=== PATIENT | male | born 1985 | race Caucasian/White ===

== ENCOUNTER 2016-10-10 12:42 | Emergency (ER) | payer BC ==
[2016-10-10] MEDS ORDERED: SODIUM CHLORIDE 0.9% 500 ML IV STA (13:19)
[2016-10-10] MEDS ORDERED: ORPHENADRINE 30 MG/ML 2 ML VIAL IVP STA (13:19)
[2016-10-10] MEDS ORDERED: KETOROLAC 30 MG/ML 1 ML VIAL IVP STA (13:19)
--- NOTE | 2016-10-10 13:47 | ED ---
General Adult HPI - General Chief complaint: Recheck/Abnormal Lab/Rx Stated complaint: back pain/white blood cell high-sent by [facility] Time Seen by Provider: 10/10/16 13:09 Source: patient, RN notes reviewed Mode of arrival: ambulatory Limitations: no limitations - History of Present Illness Initial comments: 30-year-old male presents to the emergency department with a chief complaint of back pain. Patient has chronic back pain is an MRI for his back he's been diagnosed with degenerative disc disease. Patient states her last 2 days his back as well and been causing him increased pain. Patient denies any loss of bowel or bladder function or saddle anesthesia. Patient states is much like his typical back pain flareup. Patient states that he was concerned due to the fact he was continuing to have the pain and he did not seem to make it better homicidal. He should be evaluated [facility] today. He'll he was found that his repeat blood draw did continue to show an elevated white blood cell count so they wanted him here to be further evaluated. Patient denies any history of fevers denies cough, nose. They state that he recently was placed on antibiotics to see if that would help lower his white blood cell count. He states he has no significant cancer history. He states that he has no complaints regarding that. He denies any nausea vomiting any changes in medications. Patient denies any recent fever, chills, shortness of breath, chest pain, abdominal pain, nausea vomiting, numbness or tingling, dysuria or hematuria, constipation or diarrhea, headaches or visual changes, or any other current symptoms. - Related Data Home Medications Medication Instructions Recorded Confirmed Escitalopram Oxalate [Lexapro] 10 mg PO DAILY 10/10/16 10/10/16 Famotidine [Pepcid] 20 mg PO DAILY PRN 10/10/16 10/10/16 Fluticasone Nasal Tama [Flonase 1 spray EA NOSTRIL DAILY PRN 10/10/16 10/10/16 Nasal Tama] Previous Rx's Medication Instructions Recorded predniSONE 50 mg PO DAILY #5 tab 10/10/16 Allergies Allergy/AdvReac Type Severity Reaction Status Date / Time No Known Allergies Allergy Verified 10/10/16 13:14 Review of Systems ROS Statement: Those systems with pertinent positive or pertinent negative responses have been documented in the HPI. ROS Other: All systems not noted in ROS Statement are negative. Past Medical History Past Medical History: Asthma, GERD/Reflux Additional Past Medical History / Comment(s): allergies History of Any Multi-Drug Resistant Organisms: None Reported Past Surgical History: Appendectomy Past Psychological History: Depression Smoking Status: Current every day smoker Past Alcohol Use History: Occasional Past Drug Use History: None Reported General Exam Limitations: no limitations General appearance: alert, in no apparent distress ENT exam: Present: normal exam, mucous membranes moist Neck exam: Present: normal inspection. Absent: tenderness, meningismus, lymphadenopathy Respiratory exam: Present: normal lung sounds bilaterally. Absent: respiratory distress, wheezes, rales, rhonchi, stridor Cardiovascular Exam: Present: regular rate, normal rhythm, normal heart sounds. Absent: systolic murmur, diastolic murmur, rubs, gallop, clicks GI/Abdominal exam: Present: soft, normal bowel sounds. Absent: distended, tenderness, guarding, rebound, rigid Extremities exam: Present: normal inspection, full ROM, normal capillary refill. Absent: tenderness, pedal edema, joint swelling, calf tenderness Back exam: Present: normal inspection, tenderness (Over the left paraspinal region), paraspinal tenderness (Left-sided). Absent: full ROM (In all planes due to pain), CVA tenderness (R), CVA tenderness (L), muscle spasm, vertebral tenderness, rash noted Neurological exam: Present: alert, oriented X3, CN II-XII intact. Absent: motor sensory deficit Psychiatric exam: Present: normal affect, normal mood Skin exam: Present: warm, dry, intact, normal color. Absent: rash Course Vital Signs 10/10/16 10/10/16 12:57 13:52 Temperature 98.1 F 99.7 F H Pulse Rate 89 70 Respiratory 20 18 Rate Blood Pressure 125/89 O2 Sat by Pulse 98 96 Oximetry Medical Decision Making - Medical Decision Making 30-year-old male presents emergency Department chief complaint of his chronic low back pain flaring up as well as elevated white blood cell count. At this time patient's blood work is reviewed. Patient's white count does appear to be 4 points lower than the 150s get at the left [facility]. We discussed that most likely discharging down her medications and follow-up to Dr. Cabezas fishing worker in [facility] for continued care of this. We did discuss that he could be related to the chronic sinus issues that he is currently following up with ENT specialist for. We discussed the patient's lumbar strain in how it is consistent with his typical back pain. His pain is improved with the pain medication here. We discussed that we will discharge from home and to follow- up with his doctor. Patient stated he understood and all his questions have been answered - Lab Data Result diagrams: 10/10/16 14:00 10/10/16 14:00 Lab Results 10/10/16 10/10/16 10/10/16 Range/Units 14:00 14:00 14:00 WBC 14.7 H (3.8-10.6) k/uL RBC 4.77 (4.30-5.90) m/uL Hgb 15.3 (13.0-17.5) gm/dL Hct 45.4 (39.0-53.0) % MCV 95.0 (80.0-100.0) fL MCH 32.1 (25.0-35.0) pg MCHC 33.7 (31.0-37.0) g/dL RDW 12.5 (11.5-15.5) % Plt Count 259 (150-450) k/uL Neutrophils % 80 % Lymphocytes % 12 % Monocytes % 5 % Eosinophils % 1 % Basophils % 0 % Neutrophils # 11.7 H (1.3-7.7) k/uL Lymphocytes # 1.8 (1.0-4.8) k/uL Monocytes # 0.8 (0-1.0) k/uL Eosinophils # 0.1 (0-0.7) k/uL Basophils # 0.1 (0-0.2) k/uL ESR 4 (0-15) mm/hr Sodium 145 (137-145) mmol/L Potassium 4.5 (3.5-5.1) mmol/L Chloride 106 (98-107) mmol/L Carbon Dioxide 27 (22-30) mmol/L Anion Gap 12 mmol/L BUN 18 (9-20) mg/dL Creatinine 1.10 (0.66-1.25) mg/dL Est GFR (MDRD) Af Amer >60 (>60 ml/min/1.73 sqM) Est GFR (MDRD) Non-Af >60 (>60 ml/min/1.73 sqM) Glucose 89 (74-99) mg/dL Plasma Lactic Acid Oneal 1.1 (0.7-2.0) mmol/L Calcium 9.7 (8.4-10.2) mg/dL Total Bilirubin 0.4 (0.2-1.3) mg/dL AST 35 (17-59) U/L ALT 43 (21-72) U/L Alkaline Phosphatase 65 (38-126) U/L C-Reactive Protein 10.7 H (<10.0) mg/L Total Protein 7.4 (6.3-8.2) g/dL Albumin 4.4 (3.5-5.0) g/dL Urine Color Urine Appearance (Clear) Urine pH (5.0-8.0) Ur Specific Peever (1.001-1.035) Urine Protein (Negative) Urine Glucose (UA) (Negative) Urine Ketones (Negative) Urine Blood (Negative) Urine Nitrate (Negative) Urine Bilirubin (Negative) Urine Urobilinogen (<2.0) mg/dL Ur Leukocyte Esterase (Negative) Influenza Type A RNA (Not Detectd) Influenza Type B (PCR) (Not Detectd) 10/10/16 10/10/16 Range/Units 14:50 16:00 WBC (3.8-10.6) k/uL RBC (4.30-5.90) m/uL Hgb (13.0-17.5) gm/dL Hct (39.0-53.0) % MCV (80.0-100.0) fL MCH (25.0-35.0) pg MCHC (31.0-37.0) g/dL RDW (11.5-15.5) % Plt Count (150-450) k/uL Neutrophils % % Lymphocytes % % Monocytes % % Eosinophils % % Basophils % % Neutrophils # (1.3-7.7) k/uL Lymphocytes # (1.0-4.8) k/uL Monocytes # (0-1.0) k/uL Eosinophils # (0-0.7) k/uL Basophils # (0-0.2) k/uL ESR (0-15) mm/hr Sodium (137-145) mmol/L Potassium (3.5-5.1) mmol/L Chloride (98-107) mmol/L Carbon Dioxide (22-30) mmol/L Anion Gap mmol/L BUN (9-20) mg/dL Creatinine (0.66-1.25) mg/dL Est GFR (MDRD) Af Amer (>60 ml/min/1.73 sqM) Est GFR (MDRD) Non-Af (>60 ml/min/1.73 sqM) Glucose (74-99) mg/dL Plasma Lactic Acid Oneal (0.7-2.0) mmol/L Calcium (8.4-10.2) mg/dL Total Bilirubin (0.2-1.3) mg/dL AST (17-59) U/L ALT (21-72) U/L Alkaline Phosphatase (38-126) U/L C-Reactive Protein (<10.0) mg/L Total Protein (6.3-8.2) g/dL Albumin (3.5-5.0) g/dL Urine Color Yellow Urine Appearance Clear (Clear) Urine pH 6.0 (5.0-8.0) Ur Specific Peever 1.014 (1.001-1.035) Urine Protein Negative (Negative) Urine Glucose (UA) Negative (Negative) Urine Ketones Negative (Negative) Urine Blood Negative (Negative) Urine Nitrate Negative (Negative) Urine Bilirubin Negative (Negative) Urine Urobilinogen <2.0 (<2.0) mg/dL Ur Leukocyte Esterase Negative (Negative) Influenza Type A RNA Not Detected (Not Detectd) Influenza Type B (PCR) Not Detected (Not Detectd) - Radiology Data Radiology results: report reviewed, image reviewed Disposition Clinical Impression: Leukocytosis, Chronic back pain, Lumbar disc disease Disposition: HOME SELF-CARE Condition: Stable Instructions: Chronic Back Pain (ED), Lower Back Exercises (ED) Additional Instructions: Please use medication as discussed. Please follow up with family doctor if symptoms have not improved over the next two days. Please return to the emergency room if your symptoms increase or worsen or for any other concerns. Prescriptions: predniSONE 50 mg PO DAILY #5 tab Referrals: Zane Orr MD [Primary Care Provider] - 1-2 days Drew Roldan MD [STAFF PHYSICIAN] - 1-2 days Time of Disposition: 16:50
[2016-10-10 14:27] LABS: Basophils # (A) 0.1 k/uL (0-0.2); Basophils % (A) 0 %; CH 32.4; CHCM 34.3; Eosinophils # (A) 0.1 k/uL (0-0.7); Eosinophils % (A) 1 %; HCT 45.4 % (39.0-53.0); HGB 15.3 gm/dL (13.0-17.5); Luc # (Auto) 0.27; Luc % (Auto) 2; Lymphocytes # (A) 1.8 k/uL (1.0-4.8); Lymphocytes % (A) 12 %; MCH 32.1 pg (25.0-35.0); MCHC 33.7 g/dL (31.0-37.0); Monocytes # (A) 0.8 k/uL (0-1.0); Monocytes % (A) 5 %; Neutrophils # (A) 11.7 k/uL (1.3-7.7); Neutrophils % (A) 80 %; RBC 4.77 m/uL (4.30-5.90); RDW 12.5 % (11.5-15.5); WBC 14.7 k/uL (3.8-10.6); WBC (Perox) 14.77
--- NOTE | 2016-10-10 14:29 | XR ---
EXAMINATION TYPE: XR chest 2V DATE OF EXAM: 10/10/2016 2:23 PM COMPARISON: NONE HISTORY: Cough and difficulty breathing TECHNIQUE: Frontal and lateral views of the chest are obtained. FINDINGS: There is no focal air space opacity, pleural effusion, or pneumothorax seen. The cardiac silhouette size is within normal limits. The osseous structures are intact. IMPRESSION: No acute cardiopulmonary process.
[2016-10-10 14:41] LABS: ALT 43 U/L (21-72); AST 35 U/L (17-59); Alkaline Phosphatase 65 U/L (38-126); Anion Gap 12 mmol/L; Blood Urea Nitrogen 18 mg/dL (9-20); C Reactive Protein 10.7 mg/L (<10.0); Calcium 9.7 mg/dL (8.4-10.2); Carbon Dioxide 27 mmol/L (22-30); Chloride 106 mmol/L (98-107); Glucose 89 mg/dL (74-99); Non-African American GFR(MDRD) >60 (>60 ml/min/1.73 sqM); Potassium 4.5 mmol/L (3.5-5.1); Sodium 145 mmol/L (137-145); Total Bilirubin 0.4 mg/dL (0.2-1.3); Total Protein 7.4 g/dL (6.3-8.2)
[2016-10-10 15:20] LABS: Erythrocyte Sedimentation Rate 4 mm/hr (0-15)
[2016-10-10] MEDS ORDERED: HYDROmorphone 1 MG/ML 1 ML SYRINGE IVP STA (15:49)
[2016-10-10] MEDS ORDERED: RX INFO: IV CONTRAST WAS GIVEN 1 EACH MISC MISCELLANE PRN (15:54)
[2016-10-10 16:14] LABS: Appearance,Urine Clear (Clear); Bilirubin,Urine Negative (Negative); Glucose,Urine (UA) Negative (Negative); Ketones,Urine Negative (Negative); Leukocyte Esterase,Urine Negative (Negative); Nitrite,Urine Negative (Negative); Protein,Urine Negative (Negative); Specific Gravity,Urine 1.014 (1.001-1.035); UA Billing (MACRO vs. MICRO) CHEM; Urobilinogen,Urine <2.0 mg/dL (<2.0)
--- NOTE | 2016-10-10 16:25 | CT ---
EXAMINATION TYPE: CT lumbar spine w con DATE OF EXAM: 10/10/2016 4:16 PM COMPARISON: NONE HISTORY: Low back pain and elevated WBCs. CT DLP: 1443.40 mGycm CONTRAST: Unenhanced CT of the lumbar spine is performed with IV Contrast, patient injected with 100 mL of Omni paque 300. Unenhanced CT of the lumbar spine was performed. Bone and soft tissue window settings are submitted as well as coronal and sagittal reconstructions. There appears to be a transitional lumbar vertebral segment with partial lumbarization of S1 suspecte d with rudimentary S1-S2 disc. L1-L2: Normal disc space height. No disc herniation protrusion or central stenosis. No facet joint arthropathy. No evidence for foraminal encroachment. L2-L3: Normal disc space height. No disc herniation protrusion or central stenosis. No facet joint arthropathy. No evidence for foraminal encroachment. L3-L4: Normal disc space height. No disc herniation protrusion or central stenosis. No facet joint arthropathy. No evidence for foraminal encroachment. L4-L5: Normal disc space height. No disc herniation protrusion or central stenosis. No facet joint arthropathy. No evidence for foraminal encroachment. L5-S1: Mild disc space narrowing. Nonenhancing epidural soft tissue measuring approximately 2.6 x 1.2 cm may reflect a large disc herniation with resultant right lateral recess stenosis. Right foraminal encroachment is present. No paraspinal masses are identified. Lumbar segments are free if fracture. No definite evidence for a paraspinal abscess or evidence for discitis at this time. If symptoms persist consider MRI. IMPRESSION: 1. No definite evidence for a paraspinal abscess or evidence for discitis at this time. If symptoms persist consider MRI. 2. Nonenhancing epidural soft tissue at L5-S1 measuring approximately 2.6 x 1.2 cm may reflect a larg e disc herniation with resultant right lateral recess stenosis. Right foraminal encroachment is prese nt.
[2016-10-10 17:03] VITALS: BP 129/57; PULSE 69; RESP 16; TEMP 97.3
== END 2016-10-10 17:10 | disposition home or self-care (01) ==
LOC: EC 12:42
DX: D72.829 Elevated white blood cell count, unspecified (principal); G89.29 Other chronic pain; M54.5 Low back pain; F32.9 Major depressive disorder, single episode, unspecified; F17.200 Nicotine dependence, unspecified, uncomplicated; Z79.899 Other long term (current) drug therapy
CPT/HCPCS: 36415; 80053; 85652; 83605; 85025; 86140; 81003; 87040; 87502; 71020; 72132; 99284; 96374; 96375 ×2; J2360; J1885; J1170; Q9967

== ENCOUNTER → 2019-12-25 | Outpatient (CLI) | payer OTHER ==
--- NOTE | 2019-12-25 12:52 | MR ---
EXAMINATION TYPE: MR lumbar spine wo con DATE OF EXAM: 12/25/2019 COMPARISON: CT lumbar spine October 10, 2016. MRI lumbar spine April 08, 2015 HISTORY: Low back pain for 10 years radiating into both legs per patient. TECHNIQUE: Multiplanar, multisequence imaging of the lumbar spine is performed without IV contrast. FINDINGS: Sagittal images of the lumbar spine show vertebral body heights to remain satisfactory. Tra nsitional-type sacralized L6 segment. There is persistent grade 1 retrolisthesis of L5 on L6. There i s persistent disc desiccation and mild disc space narrowing at this level. The intervertebral discs d emonstrate normal heights and hydration above this level. The conus medullary areas remains normal i n position and signal ending L1-L2 disc space level. The bone marrow signal intensity remains within normal limits. Axial images redemonstrate focal right paracentral disc protrusion effacing the anterior thecal sac a t L5 L6 level axial image 9 with additional foraminal component causing asymmetric moderate right-joni ed inferior neural foraminal narrowing seen best sagittal image 12, no significant change or progress ion from prior MRI. Other lumbar levels are within normal limits. Paraspinal muscle bulk is preserved . IMPRESSION: Stable degenerative change L5-L6 level from 2015 MRI. No interval progression or suspicio us new findings.
== END | disposition home or self-care (01) ==
LOC: RADMRIMAIN 11:57
DX: M54.5 Low back pain (principal); M47.896 Other spondylosis, lumbar region; Z88.4 Allergy status to anesthetic agent; Z88.8 Allergy status to other drugs, medicaments and biological substances
CPT/HCPCS: 72148

== ENCOUNTER → 2023-11-06 | Outpatient (CLI) | payer OTHER ==
--- NOTE | 2023-11-06 15:07 | CT ---
EXAMINATION TYPE: CT lumbar spine wo con DATE OF EXAM: 11/06/2023 2:03 PM COMPARISON: 10/10/2016 HISTORY: lower back pain CT DLP: 1862.8 mGycm Automated exposure control for dose reduction was used. Unenhanced CT of the lumbar spine was performed. Bone and soft tissue window settings are submitted as well as coronal and sagittal reconstructions. Findings: There are postsurgical changes of intradisc and posterior metallic fusion of L5-S1. Note that there i s a rudimentary S1-S2 disc. The lumbar vertebral segments are normal in height and alignment there is no subluxation or fracture. The disc spaces from L1 through L5 are well-maintained in height and no significant degenerative dis c disease. The sacrum and SI joints are normal. There is no large disc herniation or spinal stenosis. There are fractures of the lamina of L5 with slight displacement. IMPRESSION: IMPRESSION: 1. Postsurgical changes of interdisc and posterior metallic fusion of L5-S1 disc space with a rudimen tary S1/S2 disc. 2. Fractures of the L5 lamina bilaterally with slight displacement. Postsurgical changes of L5-S1
== END | disposition home or self-care (01) ==
LOC: RADCTMAIN 13:39
PROVIDERS: ATTEND Family Medicine
DX: S32.058A Other fracture of fifth lumbar vertebra, initial encounter for closed fracture (principal); M51.26 Other intervertebral disc displacement, lumbar region; X58.XXXA Exposure to other specified factors, initial encounter
CPT/HCPCS: 72131

== ENCOUNTER 2024-09-16 10:56 | Inpatient (IN) | payer OTHER, BC ==
--- NOTE | 2024-09-16 11:13 | ED ---
General Adult HPI - General Chief complaint: Shortness of Breath Stated complaint: ESPERANZA Time Seen by Provider: 09/16/24 11:08 Source: patient, RN notes reviewed Mode of arrival: ambulatory Limitations: no limitations - History of Present Illness Initial comments: This is a 38-year-old male with history of smoking presenting with significant other for worsening CXR and shortness of breath this morning following pneumonia diagnosis in this ER on 09/13/2024. Patient states he had gone to [facility] this morning where he was advised pneumonia and his right lung was growing larger despite use of prescribed doxycycline. Patient was advised to go to the ER for further treatment. Patient endorses ongoing productive cough, right chest pleuritic pain that worsens with cough and fatigue. Patient was recommended admission to treat pneumonia and prior visit but declined. Patient also had elevated D-dimer on last visit with CTA showing no indication of PE. Onset/Timin -: days(s) Location: chest Radiation: non-radiation Consistency: constant Associated Symptoms: cough, malaise, shortness of breath - Related Data Home Medications Medication Instructions Recorded Confirmed Albuterol Sulfate [Albuterol 1 puff PO RT-Q6H PRN 09/16/24 09/16/24 Sulfate Hfa] Ipratropium/Albuter 20-100Mcg 1 puff INHALATION RT-QID PRN 09/16/24 09/16/24 [Combivent Respimat 20-100Mcg Inhaler] Previous Rx's Medication Instructions Recorded HYDROcodone/APAP 5-325MG [[place] 1 tab PO Q6HR PRN 3 Days #12 tab 09/13/24 5-325] Ibuprofen [Motrin] 600 mg PO Q8HR PRN #30 tab 09/13/24 Allergies Allergy/AdvReac Type Severity Reaction Status Date / Time doxycycline AdvReac Nausea & Verified 09/16/24 13:44 Vomiting Review of Systems ROS Statement: Those systems with pertinent positive or pertinent negative responses have been documented in the HPI. ROS Other: All systems not noted in ROS Statement are negative. Past Medical History Past Medical History: Asthma, GERD/Reflux Additional Past Medical History / Comment(s): allergies History of Any Multi-Drug Resistant Organisms: None Reported Past Surgical History: Appendectomy Additional Past Surgical History / Comment(s): back/spinal fusion in 2020. Past Psychological History: Depression Smoking Status: Current every day smoker Past Alcohol Use History: Occasional Past Drug Use History: Marijuana General Exam Limitations: no limitations General appearance: alert, in no apparent distress, lethargic Head exam: Present: atraumatic, normocephalic, normal inspection Eye exam: Present: normal appearance, PERRL, EOMI. Absent: scleral icterus, conjunctival injection, periorbital swelling ENT exam: Present: normal exam, mucous membranes moist Neck exam: Present: normal inspection. Absent: tenderness, meningismus, lymphadenopathy Respiratory exam: Present: accessory muscle use, decreased breath sounds (Diminished breath sounds in right lung bases). Absent: respiratory distress, wheezes, rales, rhonchi, stridor Cardiovascular Exam: Present: regular rate, normal rhythm, normal heart sounds. Absent: systolic murmur, diastolic murmur, rubs, gallop, clicks GI/Abdominal exam: Present: soft, normal bowel sounds. Absent: distended, tenderness, guarding, rebound, rigid Extremities exam: Present: normal inspection, full ROM, normal capillary refill. Absent: tenderness, pedal edema, joint swelling, calf tenderness Back exam: Present: normal inspection Neurological exam: Present: alert, oriented X3, CN II-XII intact Psychiatric exam: Present: normal affect, normal mood Skin exam: Present: warm, dry, intact, normal color. Absent: rash Course Vital Signs 09/16/24 10:57 Temperature 98.4 F Pulse Rate 112 H Respiratory 20 Rate Blood Pressure 163/83 O2 Sat by Pulse 97 Oximetry Medical Decision Making - Medical Decision Making Was pt. sent in by a medical professional or institution (, PA, ADULT BASIC STUDIES TEACHER, urgent care, hospital, or retirement...) When possible be specific @ -[facility] following discovery of worsening CXR findings Did you speak to anyone other than the patient for history (EMS, parent, family, police, friend...)? What history was obtained from this source @ -[No] Did you review nursing and triage notes (agree or disagree)? Why? @ -[I reviewed and agree with nursing and triage notes] Were old charts reviewed (outside hosp., previous admission, EMS record, old EKG, old radiological studies, urgent care reports/EKG's, retirement records)? Report findings @ -Reviewed chart from prior ER visit on 09/13/2024. Differential Diagnosis (chest pain, altered mental status, abdominal pain women, abdominal pain men, vaginal bleeding, weakness, fever, dyspnea, syncope, headache, dizziness, GI bleed, back pain, seizure, CVA, palpatations, mental health, musculoskeletal)? @ -Differential Dyspnea: Coronary syndrome, arrhythmia, tamponade, asthma, COPD, pulmonary embolism, pneumonia, pneumothorax, pulmonary effusion, anaphylaxis, diabetic ketoacidosis, flailed chest, pulmonary contusion, diaphragmatic rupture, anemia, neur omuscular, this is not meant to be an all-inclusive list. EKG interpreted by me (3pts min.). @ -Sinus rhythm with V3 Q wave. No ST deviation or T wave inversion. Ventricular rate 95 bpm, DAVON 152 ms, QRS duration 97 ms, QTc 383 ms. X-rays interpreted by me (1pt min.). @ -[None done] CT interpreted by me (1pt min.). @ -[None done] U/S interpreted by me (1pt. min.). @ -[None done] What testing was considered but not performed or refused? (CT, X-rays, U/S, labs)? Why? @ -[None] What meds were considered but not given or refused? Why? @ -[None] Did you discuss the management of the patient with other professionals (professionals i.e. , PA, ADULT BASIC STUDIES TEACHER, lab, RT, psych nurse, social media marketing analyst, barrel finisher, t eacher, airconditioning drafting officer, correctional casework specialist)? Give summary @ -[No] Was smoking cessation discussed for >3mins.? @ -[No] Was critical care preformed (if so, how long)? @ -[No] Were there social determinants of health that impacted care today? How? (Homelessness, low income, unemployed, alcoholism, drug addiction, transportation, low edu. Level, literacy, decrease access to med. care, residential, rehab)? @ -[No] Was there de-escalation of care discussed even if they declined (Discuss DNR or withdrawal of care, Hospice)? DNR status @ -[No] What co-morbidities impacted this encounter? (DM, HTN, Smoking, COPD, CAD, Cancer, CVA, ARF, Chemo, Hep., AIDS, mental health diagnosis, sleep apnea, morbid obesity)? @ -[None] Was patient admitted / discharged? Hospital course, mention meds given and route, prescriptions, significant lab abnormalities, going to OR and other pertinent info. @ -[hospital course] Undiagnosed new problem with uncertain prognosis? @ -[No] Drug Therapy requiring intensive monitoring for toxicity (Heparin, Nitro, Insulin, Cardizem)? @ -[No] Were any procedures done? @ -[No] Diagnosis/symptom? @ -Pneumonia, leukocytosis Acute, or Chronic, or Acute on Chronic? @ -Acute Uncomplicated (without systemic symptoms) or Complicated (systemic symptoms)? @ -Complicated Side effects of treatment? @ -[No] Exacerbation, Progression, or Severe Exacerbation? @ -Progression Poses a threat to life or bodily function? How? (Chest pain, [place], [place], pneumonia, PE, COPD, DKA, ARF, appy, cholecystitis, CVA, Diverticulitis, Homicidal, Suicidal, threat to staff... and all critical care pts) @ -Pneumonia, respiratory failure - Lab Data Result diagrams: 09/16/24 11:24 09/16/24 11:24 Lab Results 09/16/24 09/16/24 09/16/24 Range/Units 11:24 11:24 11:24 WBC 21.4 H (3.8-10.6) k/uL RBC 4.14 L (4.30-5.90) m/uL Hgb 13.3 (13.0-17.5) gm/dL Hct 39.9 (39.0-53.0) % MCV 96.3 (80.0-100.0) fL MCH 32.1 (25.0-35.0) pg MCHC 33.3 (31.0-37.0) g/dL RDW 12.9 (11.5-15.5) % Plt Count 364 (150-450) k/uL MPV 7.6 Neutrophils % 85 % Lymphocytes % 7 % Monocytes % 4 % Eosinophils % 3 % Basophils % 0 % Neutrophils # 18.2 H (1.3-7.7) k/uL Lymphocytes # 1.6 (1.0-4.8) k/uL Monocytes # 0.8 (0-1.0) k/uL Eosinophils # 0.6 (0-0.7) k/uL Basophils # 0.0 (0-0.2) k/uL PT 10.3 (10.0-12.5) sec INR 0.9 (<1.2) APTT 24.6 (22.0-30.0) sec D-Dimer 5.46 H (<0.60) mg/L FEU VBG pH (7.31-7.41) VBG pCO2 (37-51) mmHg VBG HCO3 (24-28) mmol/L Sodium 138 (137-145) mmol/L Potassium 3.9 (3.5-5.1) mmol/L Chloride 103 (98-107) mmol/L Carbon Dioxide 25 (22-30) mmol/L Anion Gap 10 mmol/L BUN 21 H (9-20) mg/dL Creatinine 0.88 (0.66-1.25) mg/dL Est GFR (CKD-EPI)AfAm >90 (>60 ml/min/1.73 sqM) Est GFR (CKD-EPI)NonAf >90 (>60 ml/min/1.73 sqM) Glucose 172 H (74-99) mg/dL Plasma Lactic Acid Oneal (0.7-2.0) mmol/L Calcium 8.8 (8.4-10.2) mg/dL Magnesium 1.8 (1.6-2.3) mg/dL Total Bilirubin 0.7 (0.2-1.3) mg/dL AST 67 H (17-59) U/L ALT 101 H (4-49) U/L Alkaline Phosphatase 116 (38-126) U/L Troponin I (0.000-0.034) ng/mL C-Reactive Protein 23.5 H (<1.0) mg/dL Total Protein 6.5 (6.3-8.2) g/dL Albumin 3.5 (3.5-5.0) g/dL 09/16/24 09/16/24 09/16/24 Range/Units 11:24 11:24 11:55 WBC (3.8-10.6) k/uL RBC (4.30-5.90) m/uL Hgb (13.0-17.5) gm/dL Hct (39.0-53.0) % MCV (80.0-100.0) fL MCH (25.0-35.0) pg MCHC (31.0-37.0) g/dL RDW (11.5-15.5) % Plt Count (150-450) k/uL MPV Neutrophils % % Lymphocytes % % Monocytes % % Eosinophils % % Basophils % % Neutrophils # (1.3-7.7) k/uL Lymphocytes # (1.0-4.8) k/uL Monocytes # (0-1.0) k/uL Eosinophils # (0-0.7) k/uL Basophils # (0-0.2) k/uL PT (10.0-12.5) sec INR (<1.2) APTT (22.0-30.0) sec D-Dimer (<0.60) mg/L FEU VBG pH 7.42 H (7.31-7.41) VBG pCO2 44 (37-51) mmHg VBG HCO3 28 (24-28) mmol/L Sodium (137-145) mmol/L Potassium (3.5-5.1) mmol/L Chloride (98-107) mmol/L Carbon Dioxide (22-30) mmol/L Anion Gap mmol/L BUN (9-20) mg/dL Creatinine (0.66-1.25) mg/dL Est GFR (CKD-EPI)AfAm (>60 ml/min/1.73 sqM) Est GFR (CKD-EPI)NonAf (>60 ml/min/1.73 sqM) Glucose (74-99) mg/dL Plasma Lactic Acid Oneal 1.4 (0.7-2.0) mmol/L Calcium (8.4-10.2) mg/dL Magnesium (1.6-2.3) mg/dL Total Bilirubin (0.2-1.3) mg/dL AST (17-59) U/L ALT (4-49) U/L Alkaline Phosphatase (38-126) U/L Troponin I <0.012 (0.000-0.034) ng/mL C-Reactive Protein (<1.0) mg/dL Total Protein (6.3-8.2) g/dL Albumin (3.5-5.0) g/dL Disposition Clinical Impression: Pneumonia, Leukocytosis Disposition: ADMITTED IP TO THIS HOSP Condition: Stable Is patient prescribed a controlled substance at d/c from ED?: No Referrals: [facility] [Primary Care Provider] - 1-2 days Time of Disposition: 13:04 Decision Date: 09/16/24 Decision Time: 13:04
[2024-09-16 11:34] LABS: Basophils % (A) 0 %; Eosinophils # (A) 0.6 k/uL (0-0.7); Eosinophils % (A) 3 %; HCT 39.9 % (39.0-53.0); HGB 13.3 gm/dL (13.0-17.5); Lymphocytes # (A) 1.6 k/uL (1.0-4.8); Lymphocytes % (A) 7 %; MCH 32.1 pg (25.0-35.0); MCHC 33.3 g/dL (31.0-37.0); MCV 96.3 fL (80.0-100.0); Mean Platelet Volume 7.6; Monocytes # (A) 0.8 k/uL (0-1.0); Monocytes % (A) 4 %; Neutrophils # (A) 18.2 k/uL (1.3-7.7); Neutrophils % (A) 85 %; Platelet Count 364 k/uL (150-450); RBC 4.14 m/uL (4.30-5.90); RDW 12.9 % (11.5-15.5); WBC 21.4 k/uL (3.8-10.6)
--- NOTE | 2024-09-16 11:48 | XR ---
EXAMINATION TYPE: XR chest 2V DATE OF EXAM: 09/16/2024 11:43 AM COMPARISON: Chest radiographs from 09/13/2024, CTA chest 09/13/2024 TECHNIQUE: XR chest 2V Frontal and lateral views of the chest. CLINICAL INDICATION:Male, 38 years old with history of difficulty breathing; FINDINGS: Lungs/Pleura: No pneumothorax. Left lung is clear. Increased small right pleural effusion. Increased mid to lower right lung consolidation opacity. Pulmonary vascularity: Unremarkable. Heart/mediastinum: Cardiomediastinal silhouette is unremarkable. Musculoskeletal: No acute osseous pathology. IMPRESSION: Increased small right pleural effusion with also increased mid to lower right lung consolidative opac ity likely representing pneumonia. [facility], , 09/16/2024 11:46 AM
[2024-09-16 11:53] LABS: INR 0.9 (<1.2); Partial Thromboplastin Time 24.6 sec (22.0-30.0); Prothrombin Time 10.3 sec (10.0-12.5)
[2024-09-16 12:15] LABS: ALT 101 U/L (4-49); AST 67 U/L (17-59); African American GFR (CKD) >90 (>60 ml/min/1.73 sqM); Albumin 3.5 g/dL (3.5-5.0); Alkaline Phosphatase 116 U/L (38-126); Anion Gap 10 mmol/L; Blood Urea Nitrogen 21 mg/dL (9-20); Calcium 8.8 mg/dL (8.4-10.2); Carbon Dioxide 25 mmol/L (22-30); Chloride 103 mmol/L (98-107); Glucose 172 mg/dL (74-99); Magnesium 1.8 mg/dL (1.6-2.3); Non-African American GFR(CKD) >90 (>60 ml/min/1.73 sqM); Potassium 3.9 mmol/L (3.5-5.1); Sodium 138 mmol/L (137-145); Total Bilirubin 0.7 mg/dL (0.2-1.3); Total Protein 6.5 g/dL (6.3-8.2)
[2024-09-16 12:19] LABS: VBG PH 7.42 (7.31-7.41)
[2024-09-16] MEDS: SODIUM CHLORIDE 0.9% 1,000 ML IV STA (12:19)
[2024-09-16 12:27] LABS: C Reactive Protein 23.5 mg/dL (<1.0)
[2024-09-16] MEDS: DEXAMETHASONE SOD PHOSPHATE 10 MG/ML 1 ML VIAL IVP SCH (13:10)
[2024-09-16] MEDS: cefTRIAXone IN SWFI 1,000 MG/10 ML SYRINGE IVP STA (13:11)
[2024-09-16] MEDS ORDERED: NALOXONE 0.4 MG/ML 1 ML VIAL IV PRN (13:19)
[2024-09-16] MEDS ORDERED: HYDROcodone/APAP 5-325MG 1 EACH TAB PO PRN (13:20)
[2024-09-16] MEDS ORDERED: FAMOTIDINE 20 MG TAB PO PRN (13:20)
--- NOTE | 2024-09-16 14:01 | CT ---
EXAMINATION TYPE: CT angio chest DATE OF EXAM: 09/16/2024 1:46 PM COMPARISON: None. CLINICAL INDICATION: Male, 38 years old with history of Worsening dyspnea, elevated D-dimer, r/o pE TECHNIQUE: CT of the chest is performed on a spiral scan at 2 mm thick sections. Study is performed with intravenous contrast timed for evaluation for pulmonary embolism. This will limit additional po rtions of the evaluation. 3-D MIP images reconstructed by the technologist are reviewed on the compu ter in the coronal and sagittal planes. Contrast used:70 mL of Isovue 370 with IV Contrast, (none if empty) Oral contrast used: (none if empty) CT DLP: 740.8 mGycm, Automated exposure control for dose reduction was used. FINDINGS: No persistent filling defects are evident to suggest an acute pulmonary embolism. Contrast timing is somewhat limited due to IV access. No mediastinal or hilar adenopathy enlarged by CT criteria is evident. The ascending aorta diameter at the level of the main pulmonary artery is 3.1 cm. The main pulmonary artery diameter at the bifurcation is 3.0 cm. There is a small to moderate right pleural effusion. Loculated effusion may be in the posterior media l right lung base. Compressive atelectasis may be at the right lung base.r Limited CT sections were through the upper abdomen. Upper abdomen appears unremarkable. IMPRESSION: 1. No definite occluding pulmonary emboli. Contrast timing is somewhat limited. 2. Moderate right pleural effusion. Loculated component may be in the posterior medial right lung bas e. Adjacent compressive atelectasis is present. [facility], , 09/16/2024 1:58 PM
--- NOTE | 2024-09-16 14:18 | P.HPIM ---
History of Present Illness H&P Date: 09/16/24 Patient is a 38-year-old male with past medical history of GERD, asthma not on maintenance treatment, chronic back pain, history of spinal fusion, who presented to the ER with worsening shortness of breath. He was seen in the ER on 09/13/2024, was diagnosed with pneumonia and recommended to proceed with hospital admission, however, patient wanted to go home and was discharged on doxycycline, follow-up with primary care provider. He had repeat chest x-ray with his PCP that showed worsening pneumonia prompted evaluation here in our institution. Planes of productive cough, right-sided chest pain that is worse with cough, ongoing fatigue. ER course: Afebrile, tachycardic 112, BP elevated 163/83, satting well on room air. Lab work significant for leukocytosis 21.4 increased from 19.1 on 09/13, left shift, VBG with pH of 7.4, sodium and potassium normal, bicarb normal, creatinine normal, glucose elevated 144, lactic acid negative, AST and ALT elevated 67 and 101 accordingly, negative troponin, CRP elevated 23.5, D-dimer elevated 5.46 Chest x-ray showed increased small right pleural effusion, increased mid to lower right lung consolidative opacity representing pneumonia. Pulmonology consult for possible complicated pleural effusion, moderate right pleural effusion EKG showed sinus tachycardia no ST elevation Patient will be admitted for further evaluation of community-acquired pneumonia, IV antibiotics. Started on Symbicort Pertinent positives and negatives as discussed in HPI, a complete review of systems was performed and all other systems are negative. Patient seen and examined at bedside. Vital signs reviewed General: nontoxic, no distress, appears at stated age, obese Derm: warm, dry Head: atraumatic, normocephalic, symmetric Eyes: EOMI, no lid lag, anicteric sclera, pupils equal round reactive to light ENT: Nose and ears atraumatic Neck: No thyromegaly, supple Mouth: no lip lesion, mucus membranes moist Cardiovascular: S1S2 reg, no murmur, no edema Lungs: clear to auscultation bilateral, decreased breath sounds on the right base, no rhonchi, no rales, no wheeze, no accessory muscle use Abdominal: soft, nontender to palpation, no guarding, no appreciable organomegaly Ext: no gross muscle atrophy, muscle strength muscle strength 5 out of 5 in all 4 extremities, no contractures Neuro: CN II-XII grossly intact Psych: Alert, oriented, appropriate affect Assessment/Plan: Sepsis secondary to right-sided community-acquired pneumonia (tachycardia, leukocytosis, source of infection) Pleuritic chest pain, right Evaded D-dimer Moderate right pleural effusion, possible loculated component Elevated liver enzymes -Continue with ceftriaxone and azithromycin SOT 09/16 -Pulmonology consult for possible complicated pleural effusion, moderate right pleural effusion -Received IV bolus, will continue with fluids NS at 75 cc/h -Wells score for PE is 1.5 for tachycardia -low risk, CTA in process, follow-up results -Received 1 dose of Decadron in the ER, will hold for now, reevaluate in the morning for need of steroids -Follow-up blood cultures -Follow-up CMP Moderate persistent asthma, not in exacerbation -Takes albuterol once in 2 or 3 days, not on any other therapy, no admissions for asthma exacerbation -Start Symbicort, albuterol as needed Elevated blood pressure readings -Monitor BP Depression/anxiety, continue home Lexapro GERD continue home Pepcid Chronic back pain, status post fusion The patient is admitted with an anticipated [greater] than 2 midnight stay as [inpatient/observation] status for evaluation of sepsis community-acquired pneumonia not responded to outpatient treatment. CODE STATUS: Full code DVT prophylaxis: Lovenox Anticipated discharge date: Anticipated discharge place: home A total of 40 minutes was spent on the care of this complex patient more than 50% of the time was spent in counseling and care coordination. Past Medical History Past Medical History: Asthma, GERD/Reflux Additional Past Medical History / Comment(s): allergies History of Any Multi-Drug Resistant Organisms: None Reported Past Surgical History: Appendectomy Additional Past Surgical History / Comment(s): back/spinal fusion in 2020. Past Psychological History: Depression Smoking Status: Current every day smoker Past Alcohol Use History: Occasional Past Drug Use History: Marijuana Medications and Allergies Home Medications Medication Instructions Recorded Confirmed Type HYDROcodone/APAP 5-325MG [[place] 1 tab PO Q6HR PRN 3 Days #12 tab 09/13/24 09/16/24 Rx 5-325] Ibuprofen [Motrin] 600 mg PO Q8HR PRN #30 tab 09/13/24 09/16/24 Rx Albuterol Sulfate [Albuterol 1 puff PO RT-Q6H PRN 09/16/24 09/16/24 History Sulfate Hfa] Ipratropium/Albuter 20-100Mcg 1 puff INHALATION RT-QID PRN 09/16/24 09/16/24 History [Combivent Respimat 20-100Mcg Inhaler] Allergies Allergy/AdvReac Type Severity Reaction Status Date / Time doxycycline AdvReac Nausea & Verified 09/16/24 13:44 Vomiting Physical Exam Vitals: Vital Signs Temp Pulse Resp BP Pulse Ox 09/16/24 10:57 98.4 F 112 H 20 163/83 97 Intake and Output 09/15/24 09/16/24 09/16/24 22:59 06:59 14:59 Other: Weight 133.81 kg Results CBC & Chem 7: 09/16/24 11:24 09/16/24 11:24 Labs: Abnormal Lab Results - Last 24 Hours (Table) 09/16/24 09/16/24 09/16/24 Range/Units 11:24 11:24 11:24 WBC 21.4 H (3.8-10.6) k/uL RBC 4.14 L (4.30-5.90) m/uL Neutrophils # 18.2 H (1.3-7.7) k/uL D-Dimer 5.46 H (<0.60) mg/L FEU VBG pH (7.31-7.41) BUN 21 H (9-20) mg/dL Glucose 172 H (74-99) mg/dL AST 67 H (17-59) U/L ALT 101 H (4-49) U/L C-Reactive Protein 23.5 H (<1.0) mg/dL 09/16/24 Range/Units 11:55 WBC (3.8-10.6) k/uL RBC (4.30-5.90) m/uL Neutrophils # (1.3-7.7) k/uL D-Dimer (<0.60) mg/L FEU VBG pH 7.42 H (7.31-7.41) BUN (9-20) mg/dL Glucose (74-99) mg/dL AST (17-59) U/L ALT (4-49) U/L C-Reactive Protein (<1.0) mg/dL
[2024-09-16] MEDS: SODIUM CHLORIDE 0.9% 1,000 ML IV SCH (14:23)
[2024-09-16] MEDS: AZITHROMYCIN 500 MG in SODIUM CHLORIDE 0.9% 250 ML IVPB STA (14:23)
[2024-09-16] MEDS: HYDROcodone/APAP 5-325MG 1 EACH TAB PO PRN (14:27)
[2024-09-16 15:11] LABS: Basophils # (A) 0.1 k/uL (0-0.2); Basophils % (A) 0 %; Eosinophils # (A) 0.5 k/uL (0-0.7); Eosinophils % (A) 2 %; HCT 39.4 % (39.0-53.0); HGB 13.2 gm/dL (13.0-17.5); Lymphocytes # (A) 1.3 k/uL (1.0-4.8); Lymphocytes % (A) 6 %; MCH 32.5 pg (25.0-35.0); MCHC 33.4 g/dL (31.0-37.0); MCV 97.4 fL (80.0-100.0); Mean Platelet Volume 7.4; Monocytes # (A) 0.8 k/uL (0-1.0); Monocytes % (A) 4 %; Neutrophils # (A) 17.8 k/uL (1.3-7.7); Neutrophils % (A) 86 %; Platelet Count 347 k/uL (150-450); RBC 4.05 m/uL (4.30-5.90); RDW 12.5 % (11.5-15.5); WBC 20.8 k/uL (3.8-10.6)
[2024-09-16 15:26] LABS: ALT 109 U/L (4-49); AST 77 U/L (17-59); African American GFR (CKD) >90 (>60 ml/min/1.73 sqM); Albumin 3.2 g/dL (3.5-5.0); Alkaline Phosphatase 116 U/L (38-126); Anion Gap 10 mmol/L; Blood Urea Nitrogen 20 mg/dL (9-20); Calcium 8.2 mg/dL (8.4-10.2); Carbon Dioxide 25 mmol/L (22-30); Chloride 102 mmol/L (98-107); Glucose 117 mg/dL (74-99); Non-African American GFR(CKD) >90 (>60 ml/min/1.73 sqM); Potassium 4.3 mmol/L (3.5-5.1); Sodium 137 mmol/L (137-145); Total Bilirubin 0.5 mg/dL (0.2-1.3); Total Protein 5.9 g/dL (6.3-8.2)
--- NOTE | 2024-09-16 18:03 | P.CNPUL ---
History of Present Illness Consult date: 09/16/24 Reason for consult: dyspnea, pneumonia History of present illness: 38-year-old male patient hospitalized for right lower lobe pneumonia and a loc ulated parapneumonic right-sided pleural effusion. Symptoms started approximately a week ago. The patient was seen in Emergency Department on 09/13/2024 and he was given a CAT scan of the chest that showed a small right- sided pleural effusion and a pleural-based consolidation in in the right lung, probably the right middle lobe and also some changes involving the right lower lobe posterior segment. Patient was discharged home on doxycycline. CAT scan also showed small mediastinal and hilar lymphadenopathy and a 2.3 cm left adrenal nodule and incidental adenoma. The patient presents with worsening shortness of breath. White cell count was at 20 with a hemoglobin of 13. D- dimer was at 5.4. Electrolytes are all within normal limits. Troponins are negative. Mild transaminitis. Chest x-ray was done in the emergency that showed increased in the right lung opacification with consolidation and possibly right-sided pleural effusion and based on that the patient was given a CAT scan of the chest that showed a loculated right-sided pleural effusion along with atelectatic changes in the right lung base. Started on Rocephin and Zithromax. No significant pleurisy. He reported exertional dyspnea cough and minimal sputum production. Hemodynamically stable. Pulse ox is 97% room air oxygen. Demonstrates some mild sinus tachycardia at the time of admission. No sick contacts. 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 Review of Systems Eyes: denies as per HPI, denies blurred vision, denies bulging eye, denies decreased vision, denies diplopia, denies discharge, denies dry eye, denies irritation, denies itching, denies pain, denies photophobia, denies loss of peripheral vision, denies loss of vision, denies tunnel vision/blind spots Ears: deny: decreased hearing, ear discharge, earache, tinnitus Ears, nose, mouth and throat: Reports as per HPI Breasts: absent: as per HPI, gynecomastia Cardiovascular: Reports decreased exercise tolerance, Reports dyspnea on exertion Respiratory: Reports cough, Reports dyspnea, Reports excessive sputum Gastrointestinal: Reports as per HPI Genitourinary: Reports as per HPI Musculoskeletal: Reports as per HPI Musculoskeletal: absent: ankle pain, ankle stiffness, ankle swelling, as per HPI, elbow pain, elbow stiffness, elbow swelling, foot pain, foot stiffness, foot swelling, hand pain, hand stiffness, hand swelling, hip pain, hip stiffness, hip swelling, knee pain, knee stiffness, knee swelling, shoulder pain, shoulder stiffness, shoulder swelling, wrist pain, wrist stiffness, wrist swelling Integumentary: Reports as per HPI Neurological: Reports as per HPI Psychiatric: Reports as per HPI Hematologic/Lymphatic: Reports as per HPI Past Medical History Past Medical History: Asthma, GERD/Reflux Additional Past Medical History / Comment(s): allergies History of Any Multi-Drug Resistant Organisms: None Reported Past Surgical History: Appendectomy Additional Past Surgical History / Comment(s): back/spinal fusion in 2020. Past Anesthesia/Blood Transfusion Reactions: No Reported Reaction Past Psychological History: Depression Smoking Status: Current every day smoker Past Alcohol Use History: Occasional Past Drug Use History: Marijuana Medications and Allergies Home Medications Medication Instructions Recorded Confirmed Type HYDROcodone/APAP 5-325MG [[place] 1 tab PO Q6HR PRN 3 Days #12 tab 09/13/24 09/16/24 Rx 5-325] Ibuprofen [Motrin] 600 mg PO Q8HR PRN #30 tab 09/13/24 09/16/24 Rx Albuterol Sulfate [Albuterol 1 puff PO RT-Q6H PRN 09/16/24 09/16/24 History Sulfate Hfa] Ipratropium/Albuter 20-100Mcg 1 puff INHALATION RT-QID PRN 09/16/24 09/16/24 History [Combivent Respimat 20-100Mcg Inhaler] Allergies Allergy/AdvReac Type Severity Reaction Status Date / Time doxycycline AdvReac Nausea & Verified 09/16/24 13:44 Vomiting Physical Exam Vitals: Vital Signs Temp Pulse Resp BP Pulse Ox 09/16/24 15:24 98 18 134/88 97 09/16/24 14:00 85 16 127/66 97 09/16/24 10:57 98.4 F 112 H 20 163/83 97 Intake and Output 09/16/24 09/16/24 09/16/24 06:59 14:59 22:59 Other: Weight 133.81 kg 133.81 kg The patient appeared well nourished and normally developed. Vital signs as documented. Head exam is unremarkable. No scleral icterus or corneal arcus noted. Neck is without jugular venous distension, thyromegaly, or carotid bruits. Carotid upstrokes are brisk bilaterally. Lungs show diminished breath sound right lung base along with dullness to percussion Cardiac exam reveals the PMI to be normally sized and situated. Rhythm is regular. First and second heart sounds normal. No murmurs, rubs or gallops. Abdominal exam reveals normal bowel sounds, no masses, no organomegaly and no aortic enlargement. Extremities are nonedematous and both femoral and pedal pulses are normal. Examination of the skin revealed no evidence of significant rashes, suspicious appearing nevi or other concerning lesions. Neurologically, the patient is awake and alert and the patient does not have any focal neurological deficit. Cranial nerves are essentially intact. Results - Laboratory Findings CBC and BMP: 09/16/24 15:05 09/16/24 15:05 PT/INR, D-dimer PT 10.3 sec (10.0-12.5) 09/16/24 11:24 INR 0.9 (<1.2) 09/16/24 11:24 D-Dimer 5.46 mg/L FEU (<0.60) H 09/16/24 11:24 Abnormal lab findings: Abnormal Labs 09/16/24 09/16/24 09/16/24 11:24 11:24 11:24 WBC 21.4 H RBC 4.14 L Neutrophils # 18.2 H D-Dimer 5.46 H VBG pH BUN 21 H Glucose 172 H Calcium AST 67 H ALT 101 H C-Reactive Protein 23.5 H Total Protein Albumin 09/16/24 09/16/24 09/16/24 11:55 15:05 15:05 WBC 20.8 H RBC 4.05 L Neutrophils # 17.8 H D-Dimer VBG pH 7.42 H BUN Glucose 117 H Calcium 8.2 L AST 77 H ALT 109 H C-Reactive Protein Total Protein 5.9 L Albumin 3.2 L - Diagnostic Findings Chest x-ray: image reviewed CT scan - chest: image reviewed Assessment and Plan Plan: Right lower lobe pneumonia with parapneumonic loculated right-sided pleural effusion and compressive atelectatic changes in the right lung base. CAT scan of the chest was done on 09/16/2024 compared to the earlier CAT scan from 09/13/2024 and showed obvious progression and development of right-sided loculated pleural effusion, was completing course of doxycycline outpatient basis Shortness of breath secondary to above Acute leukocytosis, secondary to above Mild intermittent bronchial asthma maintained on albuterol HFA on as-needed basis Obesity Plan Normal saline at rate of 75 cc an hour Provide incentive spirometer Oxygenation is stable and the patient is currently on room air oxygen Sputum Gram stain and culture Blood culture IV Rocephin and Zithromax Repeat chest x-ray in a.m. Ultrasound of the chest with marking of the right-sided pleural effusion Will possibly need a right-sided thoracentesis, to be done within next 24 to 48 hours Lovenox for DVT prophylaxis Will follow
[2024-09-16] MEDS: FLUTICASONE 110 MCG INHALER INHALATION SCH (20:46)
--- NOTE | 2024-09-16 21:14 | US ---
EXAMINATION TYPE: US chest DATE OF EXAM: 09/16/2024 COMPARISON: CT and XR 09/16/24 CLINICAL INDICATION: Male, 38 years old with history of ashley fluid right; Right pleural effusion TECHNIQUE: Grayscale imaging of the chest. Targeted ultrasound of the posterior lower right hemithor ax FINDINGS: EXAM MEASUREMENTS: Right Pleural Effusion pocket size: 5.0 cm Right skin surface to fluid distance: 3.6 cm Right side marked for possible thoracentesis outside the dept. Pulmonologists are able to review the images in the patient?s EMR. IMPRESSIONS: Small to moderate Right pleural effusion. [facility], , 09/16/2024 9:12 PM
[2024-09-16] MEDS: NICOTINE 14MG/24HR PATCH TRANSDERM SCH (21:17)
[2024-09-17 06:17] LABS: Basophils # (A) 0.1 k/uL (0-0.2); Basophils % (A) 0 %; Eosinophils # (A) 0.3 k/uL (0-0.7); Eosinophils % (A) 1 %; HCT 41.4 % (39.0-53.0); HGB 13.8 gm/dL (13.0-17.5); Lymphocytes # (A) 2.1 k/uL (1.0-4.8); Lymphocytes % (A) 9 %; MCH 32.3 pg (25.0-35.0); MCHC 33.2 g/dL (31.0-37.0); MCV 97.2 fL (80.0-100.0); Mean Platelet Volume 7.6; Monocytes # (A) 1.1 k/uL (0-1.0); Monocytes % (A) 5 %; Neutrophils # (A) 20.1 k/uL (1.3-7.7); Neutrophils % (A) 84 %; Platelet Count 377 k/uL (150-450); RBC 4.26 m/uL (4.30-5.90); RDW 12.9 % (11.5-15.5)
[2024-09-17 06:27] LABS: ALT 112 U/L (4-49); AST 57 U/L (17-59); African American GFR (CKD) >90 (>60 ml/min/1.73 sqM); Albumin 3.6 g/dL (3.5-5.0); Alkaline Phosphatase 142 U/L (38-126); Anion Gap 9 mmol/L; Blood Urea Nitrogen 18 mg/dL (9-20); Calcium 8.9 mg/dL (8.4-10.2); Carbon Dioxide 25 mmol/L (22-30); Chloride 103 mmol/L (98-107); Glucose 129 mg/dL (74-99); Non-African American GFR(CKD) >90 (>60 ml/min/1.73 sqM); Potassium 4.2 mmol/L (3.5-5.1); Sodium 137 mmol/L (137-145); Total Bilirubin 0.7 mg/dL (0.2-1.3); Total Protein 6.5 g/dL (6.3-8.2)
--- NOTE | 2024-09-17 07:01 | XR ---
EXAMINATION TYPE: XR chest 2V DATE OF EXAM: 09/17/2024 5:09 AM COMPARISON: Chest radiographs from 09/16/2024, CT chest 09/16/2024 TECHNIQUE: XR chest 2V Frontal and lateral views of the chest. CLINICAL INDICATION:Male, 38 years old with history of FU pneumonia; FINDINGS: Lungs/Pleura: Similar moderate sized right pleural effusion with loculated components. Right basilar consolidation/atelectasis redemonstrated. No pneumothorax. The left lung is clear. Elevation the righ t hemidiaphragm. Pulmonary vascularity: Unremarkable. Heart/mediastinum: Cardiomediastinal silhouette is unremarkable. Musculoskeletal: No acute osseous pathology. IMPRESSION: Overall unchanged examination with moderate right pleural effusion and right basilar consolidation/at electasis. [facility], , 09/17/2024 6:59 AM
--- NOTE | 2024-09-17 09:03 | P.PN ---
Subjective Progress Note Date: 09/17/24 Principal diagnosis: Mr. Sorenson is a 38-year-old male with past medical history of GERD, asthma not on maintenance treatment, chronic back pain, history of spinal fusion, who presented to the ER with worsening shortness of breath. He was seen in the ER on 09/13/2024, was diagnosed with pneumonia and recommended to proceed with hospital admission, however, patient wanted to go home and was discharged on doxycycline, follow-up with primary care provider. He had repeat chest x-ray with his PCP that showed worsening pneumonia prompted evaluation here in our institution. Patient seen and examined. He remains on room air. He had a bedside thoracentesis performed with pulmonary. Reports he had used tobacco prior to admission Objective - Vital Signs Vital signs: Vital Signs Temp 98.2 F 09/17/24 02:00 Pulse 78 09/17/24 02:00 Resp 16 09/17/24 02:00 BP 131/65 09/17/24 02:00 Pulse Ox 96 09/17/24 02:00 FiO2 Intake & Output 09/16/24 09/17/24 09/17/24 18:59 06:59 18:59 Intake Total 1500 Balance 1500 Weight 133.81 kg Intake: Oral 1500 Other: Voiding Method Toilet # Voids 2 - Exam General: nontoxic, no distress, appears at stated age, obese Derm: warm, dry Head: atraumatic, normocephalic, symmetric Eyes: EOMI, no lid lag, anicteric sclera, pupils equal round reactive to light ENT: Nose and ears atraumatic Neck: No thyromegaly, supple Mouth: no lip lesion, mucus membranes moist Cardiovascular: S1S2 reg, no murmur, no edema Lungs: clear to auscultation bilateral, rhonchi on the right lung base, on room air Abdominal: soft, nontender to palpation, no guarding, no appreciable organomegaly Ext: no gross muscle atrophy, muscle strength muscle strength 5 out of 5 in all 4 extremities, no contractures Neuro: Moving all extremity spontaneously Psych: Alert, oriented, appropriate affect - Labs CBC & Chem 7: 09/17/24 06:00 09/17/24 06:00 Labs: Abnormal Lab Results - Last 24 Hours (Table) 09/16/24 09/16/24 09/16/24 Range/Units 11:24 11:24 11:24 WBC 21.4 H (3.8-10.6) k/uL RBC 4.14 L (4.30-5.90) m/uL Neutrophils # 18.2 H (1.3-7.7) k/uL Monocytes # (0-1.0) k/uL D-Dimer 5.46 H (<0.60) mg/L FEU VBG pH (7.31-7.41) BUN 21 H (9-20) mg/dL Glucose 172 H (74-99) mg/dL Calcium (8.4-10.2) mg/dL AST 67 H (17-59) U/L ALT 101 H (4-49) U/L Alkaline Phosphatase (38-126) U/L C-Reactive Protein 23.5 H (<1.0) mg/dL Total Protein (6.3-8.2) g/dL Albumin (3.5-5.0) g/dL 09/16/24 09/16/24 09/16/24 Range/Units 11:55 15:05 15:05 WBC 20.8 H (3.8-10.6) k/uL RBC 4.05 L (4.30-5.90) m/uL Neutrophils # 17.8 H (1.3-7.7) k/uL Monocytes # (0-1.0) k/uL D-Dimer (<0.60) mg/L FEU VBG pH 7.42 H (7.31-7.41) BUN (9-20) mg/dL Glucose 117 H (74-99) mg/dL Calcium 8.2 L (8.4-10.2) mg/dL AST 77 H (17-59) U/L ALT 109 H (4-49) U/L Alkaline Phosphatase (38-126) U/L C-Reactive Protein (<1.0) mg/dL Total Protein 5.9 L (6.3-8.2) g/dL Albumin 3.2 L (3.5-5.0) g/dL 09/17/24 09/17/24 Range/Units 06:00 06:00 WBC 24.0 H (3.8-10.6) k/uL RBC 4.26 L (4.30-5.90) m/uL Neutrophils # 20.1 H (1.3-7.7) k/uL Monocytes # 1.1 H (0-1.0) k/uL D-Dimer (<0.60) mg/L FEU VBG pH (7.31-7.41) BUN (9-20) mg/dL Glucose 129 H (74-99) mg/dL Calcium (8.4-10.2) mg/dL AST (17-59) U/L ALT 112 H (4-49) U/L Alkaline Phosphatase 142 H (38-126) U/L C-Reactive Protein (<1.0) mg/dL Total Protein (6.3-8.2) g/dL Albumin (3.5-5.0) g/dL Assessment and Plan Assessment: #) Sepsis, POA with right sided community acquired pneumonia. Imaging revealing a right pleural effusion, suspected parapneumonic fusion. Follow-up on pleural fluid results. Continue IV ceftriaxone IV azithromycin for bacterial [facility] pneumonia. The patient is not able to bring up any phlegm or sputum #) Moderate persisnt asthma. Continue Symbicort with albuterol as needed. Can consider outpatient pulmonary function testing if needed #) Depression/anxiety. Continue home lexapro #) GERD continue home pepcid #) Chronic low back pain s/p surgery Code status full DVT ppx: TBD anticipate discharge in 24-48 hours Time with Patient: Greater than 30
--- NOTE | 2024-09-17 09:35 | CT ---
EXAMINATION TYPE: CT chest wo con CT DLP: 631.8 mGycm, Automated exposure control for dose reduction was used. DATE OF EXAM: 09/17/2024 9:09 AM COMPARISON: Chest radiograph 09/17/2024, CTA chest 09/16/2024 CLINICAL INDICATION:Male, 38 years old with history of loculated pleural effusion; [facility], TECHNIQUE: Multiple axial images were obtained through the chest without IV contrast. Lack of IV or o ral contrast limits evaluation of solid and hollow organ viscera. . Coronal and sagittal reformats re viewed. FINDINGS: LUNGS/ PLEURA: No pneumothorax. Minimal left lower lobe dependent subsegmental atelectasis. Otherwise the left lung is clear. Similar small right pleural effusion with suggested loculations. Fluid trac ks into the right major fissure. Right lower lobe atelectasis/consolidation with air bronchograms red emonstrated. Elevation of the right hemidiaphragm. AIRWAY: Patent and unremarkable.. HEART: Size within normal limits.Trace pericardial effusion. MEDIASTINUM: Similar mildly enlarged mediastinal and right hilar lymph nodes with example including a right paratracheal lymph node measuring 1.5 cm short axis (series 201, image 39). VASCULATURE: No aortic aneurysm. MUSCULOSKELETAL: No acute osseous abnormalities. Mild multilevel degenerative disc disease. SOFT TISSUES/LYMPH NODES: Unremarkable. LOWER NECK: No significant findings. UPPER ABDOMEN: No significant findings. IMPRESSION: 1. Overall similar small right pleural effusion with suggested loculations. Similar right basilar con solidative opacities with atelectasis and air bronchograms suggesting infectious process. 2. Similar mediastinal and right hilar adenopathy which is likely reactive to #1. [facility], , 09/17/2024 9:32 AM
[2024-09-17] MEDS: ESCITALOPRAM 10 MG TAB PO SCH (09:59)
[2024-09-17] MEDS: ENOXAPARIN 40 MG/0.4 ML SYRINGE SQ SCH (10:09)
[2024-09-17] MEDS: LIDOCAINE 4% PATCH TOPICAL SCH (10:09)
[2024-09-17] MEDS: AZITHROMYCIN 500 MG in SODIUM CHLORIDE 0.9% 250 ML IVPB SCH (11:19)
--- NOTE | 2024-09-17 13:24 | P.PN ---
Subjective Progress Note Date: 09/17/24 38-year-old male patient hospitalized for right lower lobe pneumonia and a loculated parapneumonic right-sided pleural effusion. Symptoms started approximately a week ago. The patient was seen in Emergency Department on 09/13/2024 and he was given a CAT scan of the chest that showed a small right- sided pleural effusion and a pleural-based consolidation in in the right lung, probably the right middle lobe and also some changes involving the right lower lobe posterior segment. Patient was discharged home on doxycycline. CAT scan also showed small mediastinal and hilar lymphadenopathy and a 2.3 cm left adrenal nodule and incidental adenoma. The patient presents with worsening shortness of breath. White cell count was at 20 with a hemoglobin of 13. D- dimer was at 5.4. Electrolytes are all within normal limits. Troponins are negative. Mild transaminitis. Chest x-ray was done in the emergency that showed increased in the right lung opacification with consolidation and possibly right-sided pleural effusion and based on that the patient was given a CAT scan of the chest that showed a loculated right-sided pleural effusion along with atelectatic changes in the right lung base. Started on Rocephin and Zithromax. No significant pleurisy. He reported exertional dyspnea cough and minimal sputum production. Hemodynamically stable. Pulse ox is 97% room air oxygen. Demonstrates some mild sinus tachycardia at the time of admission. No sick contacts. 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 On 09/17/2024, the patient remains on room air oxygen. Less short of breath compared to yesterday. White second remains elevated at 24 with a hemoglobin 13.8 and a platelet count of 377. No pleurisy. No hemoptysis. No significant sputum production. The rest of the labs shows normal electrolytes, normal renal function with a BUN of 18 and a creatinine of 0.8. Mild transaminitis is noted. Performed a bedside thoracentesis on this patient and a total of 250 cc of pleural fluid was aspirated. Awaiting the pleural fluid analysis. The pleural fluid was also sent for culture and a follow-up CAT scan was ordered. Objective - Vital Signs Vital signs: Vital Signs Temp 98.2 F 09/17/24 02:00 Pulse 78 09/17/24 02:00 Resp 16 09/17/24 02:00 BP 131/65 09/17/24 02:00 Pulse Ox 96 09/17/24 02:00 FiO2 Intake & Output 09/16/24 09/17/24 09/17/24 18:59 06:59 18:59 Intake Total 1500 Balance 1500 Weight 133.81 kg Intake: Oral 1500 Other: Voiding Method Toilet # Voids 2 - Exam The patient appeared well nourished and normally developed. Vital signs as d ocumented. Head exam is unremarkable. No scleral icterus or corneal arcus noted. Neck is without jugular venous distension, thyromegaly, or carotid bruits. Carotid upstrokes are brisk bilaterally. Lungs show diminished breath sound right lung base along with dullness to percussion Cardiac exam reveals the PMI to be normally sized and situated. Rhythm is regular. First and second heart sounds normal. No murmurs, rubs or gallops. Abdominal exam reveals normal bowel sounds, no masses, no organomegaly and no aortic enlargement. Extremities are nonedematous and both femoral and pedal pulses are normal. Examination of the skin revealed no evidence of significant rashes, suspicious appearing nevi or other concerning lesions. Neurologically, the patient is awake and alert and the patient does not have any focal neurological deficit. Cranial nerves are essentially intact. - Labs CBC & Chem 7: 09/17/24 06:00 09/17/24 06:00 Labs: Abnormal Lab Results - Last 24 Hours (Table) 09/16/24 09/16/24 09/16/24 Range/Units 11:24 11:24 11:24 WBC 21.4 H (3.8-10.6) k/uL RBC 4.14 L (4.30-5.90) m/uL Neutrophils # 18.2 H (1.3-7.7) k/uL Monocytes # (0-1.0) k/uL D-Dimer 5.46 H (<0.60) mg/L FEU VBG pH (7.31-7.41) BUN 21 H (9-20) mg/dL Glucose 172 H (74-99) mg/dL Calcium (8.4-10.2) mg/dL AST 67 H (17-59) U/L ALT 101 H (4-49) U/L Alkaline Phosphatase (38-126) U/L C-Reactive Protein 23.5 H (<1.0) mg/dL Total Protein (6.3-8.2) g/dL Albumin (3.5-5.0) g/dL 09/16/24 09/16/24 09/16/24 Range/Units 11:55 15:05 15:05 WBC 20.8 H (3.8-10.6) k/uL RBC 4.05 L (4.30-5.90) m/uL Neutrophils # 17.8 H (1.3-7.7) k/uL Monocytes # (0-1.0) k/uL D-Dimer (<0.60) mg/L FEU VBG pH 7.42 H (7.31-7.41) BUN (9-20) mg/dL Glucose 117 H (74-99) mg/dL Calcium 8.2 L (8.4-10.2) mg/dL AST 77 H (17-59) U/L ALT 109 H (4-49) U/L Alkaline Phosphatase (38-126) U/L C-Reactive Protein (<1.0) mg/dL Total Protein 5.9 L (6.3-8.2) g/dL Albumin 3.2 L (3.5-5.0) g/dL 09/17/24 09/17/24 Range/Units 06:00 06:00 WBC 24.0 H (3.8-10.6) k/uL RBC 4.26 L (4.30-5.90) m/uL Neutrophils # 20.1 H (1.3-7.7) k/uL Monocytes # 1.1 H (0-1.0) k/uL D-Dimer (<0.60) mg/L FEU VBG pH (7.31-7.41) BUN (9-20) mg/dL Glucose 129 H (74-99) mg/dL Calcium (8.4-10.2) mg/dL AST (17-59) U/L ALT 112 H (4-49) U/L Alkaline Phosphatase 142 H (38-126) U/L C-Reactive Protein (<1.0) mg/dL Total Protein (6.3-8.2) g/dL Albumin (3.5-5.0) g/dL Assessment and Plan Plan: Right lower lobe pneumonia with parapneumonic loculated right-sided pleural effusion and compressive atelectatic changes in the right lung base. CAT scan of the chest was done on 09/16/2024 compared to the earlier CAT scan from 09/13/2024 and showed obvious progression and development of right-sided loculated pleural effusion, was completing course of doxycycline outpatient basis Shortness of breath secondary to above Acute leukocytosis, secondary to above Mild intermittent bronchial asthma maintained on albuterol HFA on as-needed basis Obesity Plan Thoracentesis was done and a total of 250 cc of pleural fluid aspirated from the right lung Send the pleural fluid Gram stain and culture Sent pleural fluid for chemical analysis Normal saline at rate of 75 cc an hour Provide incentive spirometer Oxygenation is stable and the patient is currently on room air oxygen Blood culture IV Rocephin and Zithromax Obtain a follow-up noncontrast CAT scan of the chest Lovenox for DVT prophylaxis Will follow
--- NOTE | 2024-09-17 13:25 | P.PCN ---
Date of Procedure: 09/17/24 Preoperative Diagnosis: Right-sided pleural effusion, loculated Postoperative Diagnosis: Right-sided pleural effusion, loculated Procedure(s) Performed: Right-sided thoracentesis Anesthesia: local Surgeon: Javier Thornton Estimated Blood Loss (ml): 0 Pathology: other Condition: stable Disposition: floor Operative Findings: A time out was performed and the chest x-ray was reviewed, the appropriate side was confirmed and marked. My hands were washed immediately prior to the pro cedure. I wore a surgical cap, mask with protective eyewear, sterile gown and sterile gloves throughout the procedure. The patient was prepped and draped in a sterile manner using chlorhexidine scrub after the appropriate level was percussed and confirmed by ultrasound. 1% lidocaine was used to anesthesize the skin, subcutaneous tissue, superior aspect of the rib periosteum and parietal pleura. A finder needle was then introduced over the superior aspect of the rib to locate the pleural fluid; 2colored fluid was aspirated at a depth of approximately 2 cm. A 10-blade scalpel was used to ventura the skin at the insertion site. The [id number] needle was then introduced through the skin incision into the pleural space using negative aspiration pressure and the red colometric indicator to confirm appropriate positioning of the needle. The thoracentesis catheter was then threaded without difficulty. 250 ml of turbid yellow colored fluid was removed without difficulty. The catheter was then removed. No immediate complications were noted during the procedure. A post- procedure chest x-ray is pending at the time of this note. The fluid will be sent for studies. Estimated blood loss is 0cc
[2024-09-17 16:33] LABS: Appearance,BF Slightly Hazy (Clear)
[2024-09-17 17:01] VITALS: RESP 16
[2024-09-17 19:34] LABS: Amylase, Fluid Source Pleural Fluid; Amylase,Body Fluid 32 U/L; Glucose, BF Source Pleural Fluid; Glucose, Body Fluid 88 mg/dL; T. Protein, Body Fluid Source Pleural Fluid; Total Protein, Body Fluid >3600 mg/dL
[2024-09-17 19:57] LABS: LDH, Body Fluid Source Pleural Fluid
[2024-09-18 07:52] LABS: Basophils # (A) 0.1 k/uL (0-0.2); Basophils % (A) 1 %; Eosinophils # (A) 0.4 k/uL (0-0.7); Eosinophils % (A) 2 %; HCT 44.3 % (39.0-53.0); HGB 14.7 gm/dL (13.0-17.5); Lymphocytes # (A) 2.2 k/uL (1.0-4.8); Lymphocytes % (A) 11 %; MCH 32.5 pg (25.0-35.0); MCHC 33.2 g/dL (31.0-37.0); Mean Platelet Volume 7.3; Monocytes # (A) 1.3 k/uL (0-1.0); Monocytes % (A) 6 %; Neutrophils % (A) 78 %; Platelet Count 457 k/uL (150-450); RBC 4.52 m/uL (4.30-5.90); RDW 12.5 % (11.5-15.5); WBC 20.4 k/uL (3.8-10.6)
[2024-09-18 08:14] LABS: African American GFR (CKD) >90 (>60 ml/min/1.73 sqM); Anion Gap 12 mmol/L; Blood Urea Nitrogen 19 mg/dL (9-20); Calcium 9.1 mg/dL (8.4-10.2); Carbon Dioxide 25 mmol/L (22-30); Chloride 102 mmol/L (98-107); Glucose 114 mg/dL (74-99); Non-African American GFR(CKD) >90 (>60 ml/min/1.73 sqM); Potassium 4.1 mmol/L (3.5-5.1); Sodium 139 mmol/L (137-145)
[2024-09-18 08:18] VITALS: BP 126/79; PULSE 78; TEMP 96.3
--- NOTE | 2024-09-18 09:33 | XR ---
EXAMINATION TYPE: XR chest 2V DATE OF EXAM: 09/18/2024 9:25 AM COMPARISON: Chest radiographs from 09/17/2024, CT chest 09/17/2024 TECHNIQUE: XR chest 2V Frontal and lateral views of the chest. CLINICAL INDICATION:Male, 38 years old with history of Follow-up pneumonia; FINDINGS: Lungs/Pleura: Similar moderate sized right pleural effusion with loculated components along the later al wall. Right basilar consolidation/atelectasis redemonstrated. No pneumothorax. The left lung is cl ear. Elevation the right hemidiaphragm. Pulmonary vascularity: Unremarkable. Heart/mediastinum: Cardiomediastinal silhouette is unremarkable. Musculoskeletal: No acute osseous pathology. IMPRESSION: Overall unchanged examination with moderate right pleural effusion and right basilar consolidation/at electasis. [facility], , 09/18/2024 9:30 AM
--- NOTE | 2024-09-18 10:50 | P.DS ---
Providers Date of admission: 09/16/24 14:15 Attending physician: Radha Powers MD Consults: 09/16/24 14:14 Consult Physician Routine Consulting Provider: Javier Thornton Consult Reason/Comments: moderate R pleural effusion, possible complicated effusion, PNA Do you want consulting provider notified?: Yes Primary care physician: [facility] Assessment: Mr. Sorenson is a 38-year-old male with past medical history of GERD, asthma not on maintenance treatment, chronic back pain, history of spinal fusion, who presented to the ER with worsening shortness of breath. He was seen in the ER on 09/13/2024, was diagnosed with pneumonia and recommended to proceed with hospital admission, however, patient wanted to go home and was discharged on doxycycline, follow-up with primary care provider. He had repeat chest x-ray with his PCP that showed worsening pneumonia prompted evaluation here in our institution. Patient seen and examined. He remains on room air. He had a bedside t horacentesis performed with pulmonary. Reports he had used tobacco prior to admission. Pleural fold revealed an LDH of 1230. This was consistent with transudative. Microbiology had revealed no growth. The patient was discharged home on August 29 with 7 days of levofloxacin Health Concerns: #) Sepsis, POA with right sided community acquired pneumonia. Imaging revealing a right pleural effusion, suspected paranemoutic effusion. transuditive with elevated LDH. microbiology showing no growth #) Moderate persisnt asthma. Continue albuterol as needed. Can consider outpatient pulmonary function testing if needed #) Depression/anxiety. Continue home lexapro #) GERD continue home pepcid #) Chronic low back pain s/p surgery #) TObacco use, cessation recommended Patient Condition at Discharge: Stable Plan - Discharge Summary Discharge Rx Participant: Yes New Discharge Prescriptions: New Escitalopram [Lexapro] 10 mg PO DAILY tab HYDROcodone/APAP 5-325MG [[place] 5-325] 1 each PO Q4HR PRN tab PRN Reason: Severe Breakthrough Pain Nicotine 14Mg/24Hr Patch [Habitrol] 1 patch TRANSDERM DAILY 28 Days #28 patch Levofloxacin [Levaquin] 750 mg PO DAILY 7 Days #7 tab Continue Ibuprofen [Motrin] 600 mg PO Q8HR PRN #30 tab PRN Reason: Pain Albuterol Sulfate [Albuterol Sulfate Hfa] 1 puff PO RT-Q6H PRN PRN Reason: Shortness Of Breath Ipratropium/Albuter 20-100Mcg [Combivent Respimat 20-100Mcg Inhaler] 1 puff INHALATION RT-QID PRN PRN Reason: Shortness Of Breath Discontinued HYDROcodone/APAP 5-325MG [[place] 5-325] 1 tab PO Q6HR PRN 3 Days #12 tab PRN Reason: Severe Breakthrough Pain Discharge Medication List Ibuprofen [Motrin] 600 mg PO Q8HR PRN #30 tab 09/13/24 [Rx] Albuterol Sulfate [Albuterol Sulfate Hfa] 1 puff PO RT-Q6H PRN 09/16/24 [Hist ory] Ipratropium/Albuter 20-100Mcg [Combivent Respimat 20-100Mcg Inhaler] 1 puff INHALATION RT-QID PRN 09/16/24 [History] Escitalopram [Lexapro] 10 mg PO DAILY tab 09/18/24 [Rx] HYDROcodone/APAP 5-325MG [[place] 5-325] 1 each PO Q4HR PRN tab 09/18/24 [Rx] Levofloxacin [Levaquin] 750 mg PO DAILY 7 Days #7 tab 09/18/24 [Rx] Nicotine 14Mg/24Hr Patch [Habitrol] 1 patch TRANSDERM DAILY 28 Days #28 patch 09/18/24 [Rx] Follow up Appointment(s)/Referral(s): Javier Thornton MD [STAFF PHYSICIAN] - 2 Weeks [facility] [Primary Care Provider] - 1-2 days Discharge Disposition: HOME SELF-CARE
--- NOTE | 2024-09-18 13:46 | P.PN ---
Subjective Progress Note Date: 09/18/24 38-year-old male patient hospitalized for right lower lobe pneumonia and a loculated parapneumonic right-sided pleural effusion. Symptoms started approximately a week ago. The patient was seen in Emergency Department on 09/13/2024 and he was given a CAT scan of the chest that showed a small right- sided pleural effusion and a pleural-based consolidation in in the right lung, probably the right middle lobe and also some changes involving the right lower lobe posterior segment. Patient was discharged home on doxycycline. CAT scan also showed small mediastinal and hilar lymphadenopathy and a 2.3 cm left adrenal nodule and incidental adenoma. The patient presents with worsening shortness of breath. White cell count was at 20 with a hemoglobin of 13. D- dimer was at 5.4. Electrolytes are all within normal limits. Troponins are negative. Mild transaminitis. Chest x-ray was done in the emergency that showed increased in the right lung opacification with consolidation and possibly right-sided pleural effusion and based on that the patient was given a CAT scan of the chest that showed a loculated right-sided pleural effusion along with atelectatic changes in the right lung base. Started on Rocephin and Zithromax. No significant pleurisy. He reported exertional dyspnea cough and minimal sputum production. Hemodynamically stable. Pulse ox is 97% room air oxygen. Demonstrates some mild sinus tachycardia at the time of admission. No sick contacts. 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 On 09/17/2024, the patient remains on room air oxygen. Less short of breath compared to yesterday. White second remains elevated at 24 with a hemoglobin 13.8 and a platelet count of 377. No pleurisy. No hemoptysis. No significant sputum production. The rest of the labs shows normal electrolytes, normal renal function with a BUN of 18 and a creatinine of 0.8. Mild transaminitis is noted. Performed a bedside thoracentesis on this patient and a total of 250 cc of pleural fluid was aspirated. Awaiting the pleural fluid analysis. The pleural fluid was also sent for culture and a follow-up CAT scan was ordered. 09/18/2024, the patient is feeling well. No specific complaints no reported fever or chills. The pleural fluid is aspirated from the right lung was not exudative based on LDH and protein criteria. Cultures are still pending for now. Remains on room air oxygen. White cell count is down to 20 with a hemoglobin 14.7 and platelet count of 457. BUN is 19 with a creatinine of 0.5. A follow-up chest x-ray was done today and there is still residual small loculated right-sided pleural effusion and right basilar consolidation/atelectasis. Patient was provided an incentive spirometer. He wants to go home. Objective - Vital Signs Vital signs: Vital Signs Temp 96.3 F L 09/18/24 07:30 Pulse 78 09/18/24 07:30 Resp 16 09/18/24 07:30 BP 126/79 09/18/24 07:30 Pulse Ox 95 09/18/24 07:30 FiO2 Intake & Output 09/17/24 09/18/24 09/18/24 18:59 06:59 18:59 Other: Voiding Method Toilet # Voids 3 2 - Exam The patient appeared well nourished and normally developed. Vital signs as documented. Head exam is unremarkable. No scleral icterus or corneal arcus noted. Neck is without jugular venous distension, thyromegaly, or carotid bruits. Carotid upstrokes are brisk bilaterally. Lungs show diminished breath sound right lung base along with dullness to per cussion Cardiac exam reveals the PMI to be normally sized and situated. Rhythm is regular. First and second heart sounds normal. No murmurs, rubs or gallops. Abdominal exam reveals normal bowel sounds, no masses, no organomegaly and no aortic enlargement. Extremities are nonedematous and both femoral and pedal pulses are normal. Examination of the skin revealed no evidence of significant rashes, suspicious appearing nevi or other concerning lesions. Neurologically, the patient is awake and alert and the patient does not have any focal neurological deficit. Cranial nerves are essentially intact. - Labs CBC & Chem 7: 09/18/24 06:56 09/18/24 06:56 Labs: Abnormal Lab Results - Last 24 Hours (Table) 09/17/24 09/18/24 09/18/24 Range/Units 08:53 06:56 06:56 WBC 20.4 H (3.8-10.6) k/uL Plt Count 457 H (150-450) k/uL Neutrophils # 16.0 H (1.3-7.7) k/uL Monocytes # 1.3 H (0-1.0) k/uL Glucose 114 H (74-99) mg/dL Fluid Appearance Slightly Hazy A (Clear) Microbiology - Last 24 Hours (Table) 09/17/24 08:53 Gram Stain - Preliminary Pleural Fluid Body Fluid Culture - Preliminary 09/16/24 14:26 Blood Culture - Preliminary Blood 09/16/24 11:55 Blood Culture - Preliminary Blood Assessment and Plan Plan: Right lower lobe pneumonia with parapneumonic loculated right-sided pleural effu yung and compressive atelectatic changes in the right lung base. CAT scan of the chest was done on 09/16/2024 compared to the earlier CAT scan from 09/13/2024 and showed obvious progression and development of right-sided loculated pleural effusion, was completing course of doxycycline outpatient basis Shortness of breath secondary to above Acute leukocytosis, secondary to above Mild intermittent bronchial asthma maintained on albuterol HFA on as-needed basis Obesity Plan Thoracentesis was done and a total of 250 cc of pleural fluid aspirated from the right lung, the fluid is an exudate based on the LDH and protein criteria Awaiting pleural fluid culturer Provide incentive spirometer and this will be used on an outpatient basis Oxygenation is stable and the patient is currently on room air oxygen Patient wants to go home. Recommended a 7-day course of Levaquin 750 mg p.o. daily with a short-term follow-up with repeat chest x-ray within next 7 to 10 days. Will follow-up on outpatient basis.
== END 2024-09-18 13:15 | disposition home or self-care (01) | DRG 871 ==
LOC: EC 10:56 → 1SOBS 14:15
PROVIDERS: ADMIT Student in an Organized Health Care Education/Training Program; ATTEND Student in an Organized Health Care Education/Training Program
PROC: 0W993ZZ Drainage of Right Pleural Cavity, Percutaneous Approach (ICD-10-PCS; principal; 2024-09-17)
DX: A41.9 Sepsis, unspecified organism (principal); J18.9 Pneumonia, unspecified organism; J90 Pleural effusion, not elsewhere classified; F32.A Depression, unspecified; J45.40 Moderate persistent asthma, uncomplicated; J98.11 Atelectasis; R74.01 Elevation of levels of liver transaminase levels; R79.1 Abnormal coagulation profile; E27.8 Other specified disorders of adrenal gland; R59.0 Localized enlarged lymph nodes; M54.9 Dorsalgia, unspecified; F17.200 Nicotine dependence, unspecified, uncomplicated; F41.9 Anxiety disorder, unspecified; G89.29 Other chronic pain; K21.9 Gastro-esophageal reflux disease without esophagitis; Z79.899 Other long term (current) drug therapy; Z98.1 Arthrodesis status; Z71.6 Tobacco abuse counseling; Z28.310 Unvaccinated for COVID-19; Z28.21 Immunization not carried out because of patient refusal; Z88.1 Allergy status to other antibiotic agents
CPT/HCPCS: 36415; 71046; 71250; 71275; 76604; 80048; 80053; 82150; 82803; 82945; 83605; 83615; 83735; 84145; 84157; 84484; 85025; 85379; 85610; 85730; 86140; 87040; 87070; 87075; 87205; 89050; 93005; 94640; 96361; 96365; 96375; 99285

== ENCOUNTER → 2024-12-19 | Outpatient (CLI) | payer OTHER ==
--- NOTE | 2024-12-19 13:14 | CT ---
CT thorax with contrast HISTORY: Follow-up right lung pleural effusion and pneumonia. COMPARISON: 09/17/2024. TECHNIQUE: Multiple axial images are obtained through the thorax following IV contrast. FINDINGS: There is resolution of the right pleural effusion and large airspace consolidation involving the righ t lower lobe. There is a small focal pleural parenchymal density right lung base consistent with mild round atelectasis or focal interstitial scarring. The left lung is clear. There are scattered micronodules but no suspicious lung masses or nodules. The great vessels the chest are normal and there is no mediastinal, hilar or axillary adenopathy. Limited scanning through the abdomen reveals no gross abnormality. No focal osseous lesions are seen. IMPRESSION: 1.Resolution of the right airspace consolidation and pleural effusion consistent with resolved pneumo kiley. 2. small wedge-shaped pleural parenchymal density in the right lower lobe posteriorly consistent with pleural parenchymal scarring or perhaps round atelectasis. [facility], Workstation: [id number] 12/19/2024 1:11 PM
== END | disposition home or self-care (01) ==
LOC: RADCTMAIN 12:33
PROVIDERS: ATTEND Internal Medicine Critical Care Medicine
DX: J18.1 Lobar pneumonia, unspecified organism (principal); J98.4 Other disorders of lung
CPT/HCPCS: 71260; Q9967